=== PATIENT | female | born 1945 | race American Indian/Alaskan Native ===

== ENCOUNTER 2017-02-23 18:09 | Emergency (ER) | payer OTHER, MEDICAID ==
[2017-02-23 18:36] VITALS: TEMP 98.1
--- NOTE | 2017-02-23 19:26 | ED PDOC ---
Arrival/HPI - General Historian: Patient - General Chief Complaint: Trauma Time Seen by Provider: 02/23/17 19:19 - History of Present Illness Narrative History of Present Illness (Text): 02/23/17 19:23 71 y/o female, pmh including htn/hyperlipidemia/dm, doesn't take any anticoagulant, c/o posterior head injury from accidental fall x 3 hours. Pt. stated that she was putting down her bags while using the walker, slipped and fall on the posterior head, no LOC, no chest pain/palpitation/dizziness/ numbness or tingling prior to the fall, no dizziness, no change in vision, no rash, no other medical or psychological complaints. (Zev Chapman) Past Medical History - Provider Review Nursing Documentation Reviewed: Yes - Cardiac Hx Hypertension: Yes - Pulmonary Hx Respiratory Disorders: No - Neurological Hx Neurological Disorder: No - HEENT Hx HEENT Disorder: No - Renal Hx Renal Disorder: No - Endocrine/Metabolic Hx Diabetes Mellitus Type 2: Yes - Hematological/Oncological Hx Blood Disorders: No - Integumentary Hx Dermatological Disorder: No - Musculoskeletal/Rheumatological Hx Arthritis: Yes - Gastrointestinal Hx Gastrointestinal Disorders: No - Genitourinary/Gynecological Hx Genitourinary Disorders: No - Psychiatric Hx Psychophysiologic Disorder: No Hx Substance Use: No - Surgical History Other/Comment: BREAST BX Family/Social History - Physician Review Nursing Documentation Reviewed: Yes Family/Social History: Unknown Family HX Smoking Status: Former Smoker Hx Alcohol Use: No Hx Substance Use: No Allergies/Home Meds Allergies/Adverse Reactions: Allergies Penicillins Allergy (Verified 02/23/17 18:26) SWELLING Home Medications: Home Meds Medication Instructions Recorded Confirmed Metformin HCl [Glucophage] 100 mg PO BID 02/23/17 02/23/17 Review of Systems - Review of Systems Constitutional: absent: Fatigue, Fevers Eyes: absent: Vision Changes ENT: absent: Hearing Changes Respiratory: absent: SOB, Cough Cardiovascular: absent: Chest Pain, Palpitations, Edema Gastrointestinal: absent: Abdominal Pain, Diarrhea, Nausea, Vomiting Musculoskeletal: absent: Arthralgias, Back Pain, Myalgias Skin: absent: Rash, Pruritis, Skin Lesions, Laceration Neurological: absent: Headache, Dizziness, Focal Weakness, Gait Changes, Speech Changes, Facial Droop Psychiatric: absent: Anxiety, Depression, Suicidal Ideation Physical Exam Vital Signs Reviewed: Yes Temperature: Afebrile Blood Pressure: Normal Pulse: Regular Respiratory Rate: Normal Appearance: Positive for: Well-Appearing, Non-Toxic, Comfortable Pain Distress: Mild Mental Status: Positive for: Alert and Oriented X 3 - Systems Exam Head: Present: Tenderness, Contusion, Swelling, Other (+tenderness/swelling/ contussion noted on the posterior occipital region). No: Ecchymosis, Abrasion, Laceration Pupils: Present: PERRL Extroacular Muscles: Present: EOMI Conjunctiva: Present: Normal Ears: Present: NORMAL TM, Normal Canal. No: Erythema Mouth: Present: Moist Mucous Membranes Pharnyx: No: ERYTHEMA, EXUDATE, Uvular Deviation Nose (External): Present: Atraumatic. No: Abrasion, Contusion Nose (Internal): Present: Normal Inspection, No Active Bleeding. No: Rhinorrhea , Septal Hematoma, Epistaxis Neck: Present: Normal Range of Motion, Trachea Midline. No: MIDLINE TENDERNESS , Paraspinal Tenderness, Lymphadenopathy Respiratory/Chest: Present: Clear to Auscultation, Good Air Exchange. No: Respiratory Distress, Accessory Muscle Use Cardiovascular: Present: Regular Rate and Rhythm, Normal S1, S2. No: Murmurs Abdomen: Present: Normal Bowel Sounds. No: Tenderness, Distention, Peritoneal Signs, Rebound, Guarding Back: Present: Normal Inspection Upper Extremity: Present: Normal Inspection, Normal ROM, Neurovascularly Intact , Capillary Refill < 2s. No: Cyanosis, Edema, Deformity Lower Extremity: Present: Normal Inspection, Normal ROM, Neurovascularly Intact. No: Edema Neurological: Present: GCS=15, Speech Normal, Motor Func Grossly Intact, Memory Normal Skin: Present: Warm, Dry, Normal Color. No: Rashes Psychiatric: Present: Alert, Oriented x 3, Normal Insight, Normal Concentration Medical Decision Making - RAD Interpretation Chief Medical Director: Radiologist ED Course and Treatment: 02/23/17 19:26 -CT head -Tylenol -observe and reassess 02/23/17 20:10 -CT head show no acute traumatic findings. -Pain decreased, feeling better, will discharge home. -Discharge home with education on ice compression, take tylenol for pain as needed, stay hydrated, follow up with your own pmd within 2 days, return to the ER for any new or worsening signs or symptoms. (Zev Chapman) - RAD Interpretation Radiology Orders: 02/23/17 19:22 HEAD W/O CONTRAST [CT] Stat FINDINGS: There is occipital scalp swelling without radiodense foreign body or soft tissue gas. No acute skull fracture. No acute parenchymal hemorrhage, extraaxial collection, or acute transcortical infarction. Scattered foci of of low attenuation within the periventricular white matter basal ganglia calcifications are most compatible with chronic microvascular disease. Small chronic right basal ganglia lacune. Mild diffuse volume loss without mass effect or midline shift. Vascular calcifications are noted. The paranasal sinuses and mastoid air cells are clear. IMPRESSION: Mild occipital scalp swelling. No skull fracture or acute intracranial injury. Small chronic microvascular changes and volume loss. Thank you for allowing us to participate in the care of your patient. Dictated and Authenticated by: Katie Ortiz MD 02/23/2017 7:46 PM Eastern Time ([place] & [place]) (Zev Chapman) - Medication Orders Current Medication Orders: Discontinued Medications Acetaminophen (Tylenol 325mg Tab) 650 mg PO STAT STA Stop: 02/23/17 19:26 Last Admin: 02/23/17 19:51 Dose: 650 mg - PA / CHIEF TALENT OFFICER / Resident Statement MD/DO has reviewed & agrees with the documentation as recorded. Disposition/Present on Arrival - Present on Arrival Any Indicators Present on Arrival: No History of DVT/PE: No History of Uncontrolled Diabetes: Yes Urinary Catheter: No History of Decub. Ulcer: No History Surgical Site Infection Following: None - Disposition Have Diagnosis and Disposition been Completed?: Yes Disposition Time: 20:11 Patient Plan: Discharge - Disposition Diagnosis: Accidental fall, Scalp hematoma, Head injury, closed, without LOC Disposition: HOME/ ROUTINE Condition: GOOD Additional Instructions: Discharge home with education on ice compression, take tylenol for pain as needed, stay hydrated, follow up with your own pmd within 2 days, return to the ER for any new or worsening signs or symptoms. Referrals: Gigi Shannon MD [Primary Care Provider] - Follow up with primary
[2017-02-23 20:19] VITALS: BP 131/76; PULSE 79; RESP 17; O2SAT 99
--- NOTE | 2017-02-24 09:09 | CT ---
PROCEDURE: CT HEAD WITHOUT CONTRAST. HISTORY: accidental fall, posterior occipital injury COMPARISON: None available. TECHNIQUE: Axial computed tomography images were obtained through the head/brain without intravenous contrast. Radiation dose: Total exam DLP = 725.84 mGy-cm. This CT exam was performed using one or more of the following dose reduction techniques: Automated exposure control, adjustment of the mA and/or kV according to patient size, and/or use of iterative reconstruction technique. FINDINGS: HEMORRHAGE: No intracranial hemorrhage. BRAIN: There are mild chronic microangiopathic changes. There is no mass, mass effect or abnormal extra-axial fluid collection. There are coarse atherosclerotic calcifications in the cavernous carotid arteries. VENTRICLES: There is mild age-related global parenchymal volume loss and proportionate enlargement of the ventricles and cortical sulci. CALVARIUM: There is no calvarial fracture. There is a moderate left parietal scalp hematoma. PARANASAL SINUSES: Predominantly clear. MASTOID AIR CELLS: Predominantly clear. There is cerumen in the external auditory canals. OTHER FINDINGS: None. IMPRESSION: No acute intracranial abnormality. Moderate left parietal scalp hematoma. Mild chronic microangiopathic changes and mild age-related global parenchymal volume loss. A preliminary report was provided by [employer].
== END 2017-02-23 20:18 | disposition home or self-care (01) ==
LOC: ED 18:09
DX: S00.03XA Contusion of scalp, initial encounter (principal); S09.90XA Unspecified injury of head, initial encounter; W01.0XXA Fall on same level from slipping, tripping and stumbling without subsequent striking against object, initial encounter; Z87.891 Personal history of nicotine dependence; E78.5 Hyperlipidemia, unspecified; I10 Essential (primary) hypertension

== ENCOUNTER 2017-12-02 15:24 | Emergency (ER) | payer OTHER ==
[2017-12-02 15:31] VITALS: BP 140/81; PULSE 90; RESP 17; TEMP 98.1; O2SAT 97
--- NOTE | 2017-12-02 15:53 | ED PDOC ---
Arrival/HPI - General Chief Complaint: Suture/Staple Removal Time Seen by Provider: 12/02/17 15:52 Historian: Patient - History of Present Illness Narrative History of Present Illness (Text): 12/02/17 15:53 72 y/o female, pmh including htn/hyperlipidemia/dm, nkda here for the suture removal from the rt. eye brow s/p suture about 7 days ago. Pt. stated that she was seen here about 7 days ago, suture with 4 stiches, told to come back today, no fever or chills, no night sweat, no dizziness, no palpitation, no numbness or tingling, no rash, no other medical or psychological complaints. Past Medical History - Provider Review Nursing Documentation Reviewed: Yes - Cardiac Hx Hypertension: Yes - Pulmonary Hx Respiratory Disorders: No - Neurological Hx Neurological Disorder: No - HEENT Hx HEENT Disorder: No - Renal Hx Renal Disorder: No - Endocrine/Metabolic Hx Diabetes Mellitus Type 2: Yes - Hematological/Oncological Hx Blood Disorders: No - Integumentary Hx Dermatological Disorder: No - Musculoskeletal/Rheumatological Hx Arthritis: Yes - Gastrointestinal Hx Gastrointestinal Disorders: No - Genitourinary/Gynecological Hx Genitourinary Disorders: No - Psychiatric Hx Psychophysiologic Disorder: No Hx Substance Use: No - Surgical History Other/Comment: BREAST BX Family/Social History - Physician Review Nursing Documentation Reviewed: Yes Family/Social History: Unknown Family HX Smoking Status: Former Smoker Hx Alcohol Use: No Hx Substance Use: No Allergies/Home Meds Allergies/Adverse Reactions: Allergies Penicillins Allergy (Verified 12/02/17 15:27) SWELLING Home Medications: Home Meds Medication Instructions Recorded Confirmed Bupropion HCl [Bupropion HCl Xl] 150 mg PO DAILY 11/25/17 11/25/17 Clopidogrel [Plavix] 50 mg PO DAILY 11/25/17 12/02/17 Gabapentin [Neurontin] 300 mg PO BID 11/25/17 12/02/17 metFORMIN [glucOPHAGE] 850 mg PO DAILY 11/25/17 12/02/17 Review of Systems - Review of Systems Constitutional: absent: Fatigue, Fevers Eyes: absent: Vision Changes ENT: absent: Hearing Changes Respiratory: absent: SOB, Cough Cardiovascular: absent: Chest Pain Gastrointestinal: absent: Abdominal Pain, Nausea, Vomiting Musculoskeletal: absent: Arthralgias Skin: absent: Rash, Pruritis, Laceration, Ulcer Neurological: absent: Headache, Dizziness Psychiatric: absent: Anxiety, Depression Physical Exam Vital Signs Reviewed: Yes Vital Signs Temp Pulse Resp BP Pulse Ox 12/02/17 15:29 98.1 F 90 17 140/81 97 Temperature: Afebrile Blood Pressure: Normal Pulse: Regular Respiratory Rate: Normal Appearance: Positive for: Well-Appearing, Non-Toxic, Comfortable Pain Distress: None Mental Status: Positive for: Alert and Oriented X 3 - Systems Exam Head: Present: Atraumatic, Normocephalic Pupils: Present: PERRL Extroacular Muscles: Present: EOMI Conjunctiva: Present: Normal Mouth: Present: Moist Mucous Membranes Neck: Present: Normal Range of Motion Respiratory/Chest: Present: Clear to Auscultation, Good Air Exchange. No: Respiratory Distress, Accessory Muscle Use Cardiovascular: Present: Regular Rate and Rhythm, Normal S1, S2. No: Murmurs Abdomen: Present: Normal Bowel Sounds. No: Tenderness, Distention, Peritoneal Signs Back: Present: Normal Inspection Upper Extremity: Present: Normal Inspection. No: Cyanosis, Edema Lower Extremity: Present: Normal Inspection. No: Edema Neurological: Present: GCS=15, Speech Normal, Motor Func Grossly Intact, Gait Normal, Memory Normal Skin: Present: Warm, Dry, Rashes (Rt. eyebrow visible approx. 2 cm with 4 continuous sutures with skin overgrowth noted and scar noted, no streaking or ulcer. ), Normal Color Psychiatric: Present: Alert, Oriented x 3, Normal Insight, Normal Concentration Medical Decision Making ED Course and Treatment: 12/02/17 16:06 -4 sutures removed with success, wound rechecked with no visible remaining suture however on the rt. lateral region of eyebrow with mild gapping scar noted , no streaking or ulcer. -Discharge home with follow up with your own pmd within 2 days, return to the ER for any new or worsening signs or symptoms. - PA / SUPERVISOR DRAWING / Resident Statement MD/DO has reviewed & agrees with the documentation as recorded. Disposition/Present on Arrival - Present on Arrival Any Indicators Present on Arrival: No History of DVT/PE: No History of Uncontrolled Diabetes: Yes Urinary Catheter: No History of Decub. Ulcer: No History Surgical Site Infection Following: None - Disposition Have Diagnosis and Disposition been Completed?: Yes Diagnosis: Visit for suture removal Disposition: HOME/ ROUTINE Disposition Time: 16:08 Patient Plan: Discharge Condition: GOOD Additional Instructions: -Discharge home with follow up with your own pmd within 2 days, return to the ER for any new or worsening signs or symptoms. Referrals: Gigi Shannon MD [Primary Care Provider] - Follow up with primary Forms: [employer] (Malay), WORK NOTE
== END 2017-12-02 16:12 | disposition home or self-care (01) ==
LOC: ED 15:24
DX: Z48.02 Encounter for removal of sutures (principal)

== ENCOUNTER 2018-08-08 22:07 | Emergency (ER) | payer OTHER ==
[2018-08-08 22:32] VITALS: BMI 24.5
[2018-08-08 22:33] VITALS: RESP 18
--- NOTE | 2018-08-08 22:47 | ED PDOC ---
Arrival/HPI - General Chief Complaint: Medical Clearance Time Seen by Provider: 08/08/18 22:42 Historian: Patient - History of Present Illness Narrative History of Present Illness (Text): 08/08/18 22:44 73 year old female, whose past medical history includes hypertension, hyperlipidemia, diabetes, presents to the emergency department status post hypoglycemic episode. Patient informs when questioned, that she may not have eaten enough today. Patient is non insulin dependent, and takes medication for her diabetes. Patient states she may have passed out, and was awoken by her friend in the building after sleeping for a really long time. Patient informs having hypoglycemia in the past. Patient informs when she woke up and checked her glucose it was 51. Patient informs she feels better in the emergency department and denies any fevers, chills, headache, dizziness, chest pain, shortness of breath, cough, abdominal pain, or any other complaint. Time/Duration: Prior to Arrival Symptom Onset: Gradual Symptom Course: Unchanged Past Medical History - Provider Review Nursing Documentation Reviewed: Yes - Infectious Disease Hx of Infectious Diseases: None - Cardiac Hx Cardiac Disorders: Yes Hx Hypertension: Yes - Pulmonary Hx Respiratory Disorders: No - Neurological Hx Neurological Disorder: No - HEENT Hx HEENT Disorder: No - Renal Hx Renal Disorder: No - Endocrine/Metabolic Hx Endocrine Disorders: Yes Hx Diabetes Mellitus Type 2: Yes - Hematological/Oncological Hx Blood Disorders: No - Integumentary Hx Dermatological Disorder: No - Musculoskeletal/Rheumatological Hx Musculoskeletal Disorders: Yes Hx Arthritis: Yes - Gastrointestinal Hx Gastrointestinal Disorders: No - Genitourinary/Gynecological Hx Genitourinary Disorders: No - Psychiatric Hx Psychophysiologic Disorder: No Hx Substance Use: No - Surgical History Other/Comment: BREAST BX Family/Social History - Physician Review Nursing Documentation Reviewed: Yes Family/Social History: No Known Family HX Smoking Status: Former Smoker Hx Alcohol Use: No Hx Substance Use: No Allergies/Home Meds Allergies/Adverse Reactions: Allergies Penicillins Allergy (Verified 08/08/18 22:40) SWELLING Home Medications: Home Meds Medication Instructions Recorded Confirmed Bupropion HCl [Bupropion HCl Xl] 150 mg PO DAILY 11/25/17 08/08/18 Clopidogrel [Plavix] 50 mg PO DAILY 11/25/17 08/08/18 Gabapentin [Neurontin] 300 mg PO BID 11/25/17 08/08/18 metFORMIN [glucOPHAGE] 850 mg PO DAILY 11/25/17 08/08/18 Review of Systems - Physician Review All systems were reviewed & negative as marked: Yes - Review of Systems Constitutional: absent: Fevers, Night Sweats Respiratory: absent: SOB, Cough Cardiovascular: absent: Chest Pain Gastrointestinal: absent: Abdominal Pain Neurological: absent: Headache, Dizziness Physical Exam - Physical Exam Narrative Physical Exam (Text): 08/08/18 22:49 Gen: VS reviewed, alert, well developed, well nourished, nontoxic, mild distress. ENT: normal pharynx. Eye: EOMI, PERRL. Neck: no JVD, supple, no adenopathy. CV: regular rate, regular rhythm, no rubs, no murmur, no gallops, S1, S2, pulses equal and strong. Pulm: no distress, clear to auscultation, no wheeze, no rhonchi, breath sounds equal, no rales. Abd: soft, nontender, no guarding, no rebound, no rigidity, normal bowel sounds. Ext: no edema. Skin: good color, no rash, no cyanosis. Psych: responds appropriately to questions, normal affect. Neuro: oriented x 3, CN2-12 intact grossly, motor intact, sensation intact. Vital Signs Reviewed: Yes Vital Signs Temp Pulse Resp BP Pulse Ox 08/08/18 22:32 97.8 F 91 H 18 141/76 100 Temperature: Afebrile Blood Pressure: Normal Pulse: Regular Respiratory Rate: Normal Appearance: Positive for: Well-Appearing, Non-Toxic, Comfortable Pain Distress: None Mental Status: Positive for: Alert and Oriented X 3 Medical Decision Making ED Course and Treatment: 08/08/18 22:50 Impression: 73 year old female presents for evaluation status post hypoglycemic episode. Plan: -- Labs -- Urinalysis -- Reassess and disposition Prior Visits: Notes and results from previous visits were reviewed. Progress Notes: - Scribe Statement The provider has reviewed the documentation as recorded by the [place] Provider Scribe Attestation: All medical record entries made by the Scribe were at my direction and personally dictated by me. I have reviewed the chart and agree that the record accurately reflects my personal performance of the history, physical exam, medical decision making, and the department course for this patient. I have also personally directed, reviewed, and agree with the discharge instructions and disposition. Disposition/Present on Arrival - Present on Arrival Any Indicators Present on Arrival: No History of DVT/PE: No History of Uncontrolled Diabetes: Yes Urinary Catheter: No History of Decub. Ulcer: No History Surgical Site Infection Following: None - Disposition Have Diagnosis and Disposition been Completed?: Yes Diagnosis: Hypoglycemia Disposition Time: 01:19 Patient Plan: Discharge Patient Problems: Current Active Problems Problem Status Onset Hypoglycemia Acute Condition: STABLE Discharge Instructions (ExitCare): Low Blood Sugar, Adult (DC) Additional Instructions: You must eat regular and full meals if you take your diabetic medications. JOSE MCFARLAND, thank you for letting us take care of you today. Your provider was Dr.Lamont Palacios and you were treated for low blood sugar. The emergency medical care you received today was directed at your acute symptoms. If you were prescribed any medication, please fill it and take as directed. It may take several days for your symptoms to resolve. Return to the Emergency Department if your symptoms worsen, do not improve, or if you have any other problems. Please contact your doctor or call one of the physicians/clinics you have been referred to that are listed on the Patient Visit Information form that is included in your discharge packet. Bring any paperwork you were given at discharge with you along with any medications you are taking to your follow up visit. Our treatment cannot replace ongoing medical care by a primary care provider outside of the emergency department. Thank you for allowing the [facility] team to be part of your care today. If you had an X-Ray or CT scan: A Radiologist will review the ED reading if any change in treatment is needed we will contact you. If you had a blood, urine, or wound culture: It will take several days for the results, if any change in treatment is needed we will contact you. If you had an STI test: It will take 48 hours for the results. Please call after 1 week if you have not heard back. Referrals: [facility] [Outside] - Follow up with primary Marycruz Shaffer MD [Medical Doctor] - Follow up with primary Forms: [employer] (Cuban)
[2018-08-09 00:22] LABS: BASO # 0.01 K/mm3 (0.0-2.0); BASO % 0.2 % (0.0-3.0); EOS # 0.2 (0.0-0.7); EOS % 3.2 % (1.5-5.0); GRAN # 4.15 (1.4-6.5); GRAN % 66.8 % (50.0-68.0); HEMOGLOBIN 11.3 g/dL (12.0-16.0); LYMPH # 1.5 (1.2-3.4); LYMPH % 24.5 % (22.0-35.0); MEAN CELL VOLUME 87.8 fl (80.0-105.0); MEAN CORPUSCULAR HGB CONC 31.9 g/dl (31.0-37.0); MEAN PLATELET VOLUME 9.5 fl (7.0-11.0); MONO # 0.3 (0.1-0.6); MONO % 5.3 % (1.0-6.0); RBC 4.03 10^6/uL (3.5-6.1); RED CELL DISTRIBUTION WIDTH 13.7 % (11.5-14.5); WHITE BLOOD COUNT 6.2 10^3/ul (4.5-11.0)
[2018-08-09 00:23] LABS: URINE APPEARANCE CLEAR (CLEAR); URINE BILIRUBIN NEGATIVE (NEGATIVE); URINE BLOOD NEGATIVE (NEGATIVE); URINE COLOR YELLOW (YELLOW); URINE GLUCOSE (UA) >=1000 mg/dL (NEGATIVE); URINE LEUKOCYTE ESTERASE NEGATIVE Leu/uL (NEGATIVE); URINE PROTEIN NEGATIVE mg/dL (<30 mg/dL); URINE UROBILINOGEN 0.2 E.U./dL (<1 E.U./dL)
[2018-08-09 00:44] LABS: BLOOD UREA NITROGEN 17 mg/dL (7-21); CALCIUM 9.4 mg/dL (8.4-10.5); GFR NON-AFRICAN AMERICAN > 60
[2018-08-09 01:38] VITALS: BP 135/80; PULSE 81; TEMP 98.4; O2SAT 99
== END 2018-08-09 01:35 | disposition home or self-care (01) ==
LOC: ED 22:07
DX: E11.649 Type 2 diabetes mellitus with hypoglycemia without coma (principal); Z79.84 Long term (current) use of oral hypoglycemic drugs